=== PATIENT | female | born 1990 | race Two or more races ===

== ENCOUNTER 2025-01-29 16:28 | Outpatient (CLI) | payer MEDICAID, SELFPAY ==
[2025-01-29 17:00] VITALS: BP 111/72; PULSE 92; RESP 16; TEMP 36.6; O2SAT 99; BMI 29.7
[2025-01-29 18:02] LABS: ROM Kit Lot # 58102387; ROM Swab Mixed By: CL; Rupture of Fetal Membranes Negative (Negative); Swb Mxed in Solvent 1 min? Yes
[2025-01-29 18:26] LABS: FFN Specimen Descripton Clr Colrless Aqueous; Fetal Fibronectin Negative (Negative)
[2025-01-29 18:30] VITALS: BP 111/72; PULSE 92; RESP 16; TEMP 36.6
== END 2025-01-29 18:50 | disposition home or self-care (01) ==
LOC: S4S1 16:47 → S4SX 17:32
PROVIDERS: PCP Physician Assistant Medical; Referring Provider Specialist; Visit Provider Specialist
DX: Z34.83 Encounter for supervision of other normal pregnancy, third trimester (principal); Z36.89 Encounter for other specified antenatal screening; Z3A.31 31 weeks gestation of pregnancy
CPT/HCPCS: 59025; 82731; 84112

== ENCOUNTER 2025-03-14 15:38 | Outpatient (RCR) | payer MEDICAID, SELFPAY ==
[2025-03-06 08:33] VITALS: BP 110/66; PULSE 83; RESP 16; TEMP 36.8
--- NOTE | 2025-03-06 08:54 | XR_ITS ---
Examination: Biophysical profile, ultrasound, twin A Date and time of exam: March 06, 2025, 0924 hours INDICATIONS: Worsening pelvic contractions this week Technique: Multiple transabdominal sonographic images of the pelvis abdomen obtained. Attention is directed to the breathing movement, gross body movement, amniotic fluid volume and tone. Findings: Amniotic fluid index 7.7 cm Total biophysical profile is 8 of 8. breathing movement is 2. Gross body movement is 2. tone is 2. Qualitative amniotic fluid volume is 2 Impression: Biophysical profile is 8 of 8. Twin A Examination: Biophysical profile, ultrasound, twin B Date and time of exam: March 06, 2025 0934 hours INDICATIONS: Worsening pelvic contractions this week Technique: Multiple transabdominal sonographic images of the pelvis abdomen obtained. Attention is directed to the breathing movement, gross body movement, amniotic fluid volume and tone. Findings: Amniotic fluid index 7.7 cm Total biophysical profile is 8 of 8. breathing movement is 2. Gross body movement is 2. tone is 2. Qualitative amniotic fluid volume is 2 Impression: Biophysical profile is 8 of 8. Twin B
[2025-03-14 16:01] VITALS: BP 122/79; PULSE 76; RESP 16; TEMP 36.7
== END 2025-03-14 23:59 | disposition home or self-care (01) ==
LOC: S4S1 15:38
PROVIDERS: Referring Provider Specialist; Visit Provider Specialist
DX: O30.043 Twin pregnancy, dichorionic/diamniotic, third trimester (principal); Z3A.37 37 weeks gestation of pregnancy
CPT/HCPCS: 59025; 76819

== ENCOUNTER 2025-03-18 16:20 | Inpatient (IN) | payer MEDICAID, SELFPAY ==
--- NOTE | 2025-03-18 07:33 | PC.NURSE ---
pt on phone, asked regarding bed availability for IOL, informed pt of no bed available at this time, educated on kick count and labor precautions, informed pt of this RN calling if bed becomes available, pt verbalized understanding
[2025-03-18 16:31] VITALS: BMI 30.9
[2025-03-18 16:50] VITALS: BP 125/82; PULSE 82
--- NOTE | 2025-03-18 17:11 | XR_ITS ---
Examination: . There is limited TECHNIQUE: Limited transabdominal sonographic images pelvis INDICATIONS: Twin gestations, induction today, labor evaluation Date and time: March 18, 2025 1758 hours FINDINGS: Baby A: Cephalic presentation Cardiac motion 147 BPM Estimated weight 2834 g Baby B: Cephalic presentation Cardiac motion 1:30 BPM Estimated weight 2742 g IMPRESSION: Twin gestations as above
[2025-03-18 17:25] VITALS: BMI 30.9
[2025-03-18 17:34] VITALS: RESP 17; TEMP 37
--- NOTE | 2025-03-18 18:05 | ESHP_ITS ---
Documentation for date of: 03/18/25 OB Labor/Induct. HPI History of Present Illness Chief complaint: scheduled IOL : 7 Para: 6 Term pregnancies: 6 pregnancies: 0 Living children: 6 History of Abortions: Spontaneous and Elective: 0 History of Vaginal deliveries: 6 History of sections: No History of : No Date of last menstrual period: 06/25/25 SUDHA: 04/01/25 Gestational Age (weeks): 38 Gestational Age (days): 0 Gestational age based on last menstrual period: -14 Indication for induction: other History of present illness: Patient presents for scheduled induction of labor. Indication: di di twin gestation at 38w0d. Having some ctx, not painful. No LOF. No vaginal bleeding. Normal movement x2. History of Present Dating criteria: LMP confirmed by 1st trimester US Adequate Care: Yes Ultrasounds: other (Had normal anatomy scans and growth scans with MFM, at last MFM growth scan Twin B was 2 grams more than Twin A) Narrative: PNC with Dr. Sherri Monaco of uncomplicated x6 at term, proven to [id number] Current di-di twins. Twin A is male, Twin B is female. Taking ASA 81mg QD Labs Maternal Blood Type: A Pos Labs: Negative: RPR, Hepatitis B, Rubella Titre, HIV, Chlamydia, Gonorrhea and Group Beta Strep and Unknown: Herpes Type 1, Herpes Type 2 and Covid-19 Narrative: 1hr glucola 128 NIPT negative Review of Systems Review of Systems Narrative Review of Systems: Review of Systems Systems Reviewed: All systems reviewed, normal except as documented Constitutional Constitutional: Denies body ache(s), Denies chills, Denies fever(s) and Denies headache(s) ENT Ears, Nose, Mouth, and Throat: Denies headache(s) and Denies vertigo Cardiovascular Cardiovascular: Denies chest pain, Denies palpitations, Denies dyspnea and Denies syncope Respiratory Respiratory: Denies cough, Denies dyspnea Gastrointestinal Gastrointestinal: Denies nausea and Denies vomiting Neurologic Neurologic: Denies convulsions, Denies headache(s), Denies other visual disturbances, Denies syncope and Denies vertigo Past Medical History Family History OTHER FAMILY HX: non-contributory Surgical History SURGICAL: Negative Section Social History SOCIAL: No tobacco/ETOH/illicit drug use. , good support. Past Medical History Comments PMH COMMENT: Benign. Meds Home Medications and Allergies Home Medications ?Medication ?Instructions ?Recorded ?Confirmed ?Type prenat.vits,trung,alx-[id number] 1 tab PO DAILY 03/28/22 03/28/22 History Allergies Allergy/AdvReac Type Severity Reaction Status Date / Time No Known Allergies Allergy Unknown Verified 03/18/25 18:12 OB Exam Physical Exam Vital signs: Temp Pulse Resp BP 98.6 F 82 17 125/82 03/18/25 17:34 03/18/25 16:50 03/18/25 17:34 03/18/25 16:50 Narrative: General: well developed, well nourished, no acute distress, conversant Cardiac: normal heart rate Lungs: breathing without distress Abdomen: soft, gravid, non-tender, no rebound or guarding Extremities: trace edema BLE Detailed Labor and Delivery Exam Dilation (cm): 2-3 Effacement (%): 60 Cervix position: mid station: -2 Consistency: medium Presentation: Vertex (vertex x2 by ultrasound) Membranes: intact monitor accelerations: 15x15 (x2) monitor decelerations: None (x2) superintendent terminal variability: Moderate (11-25) (x2) Contraction frequency (min): ctx q4-5min OB Results Labs 03/18/25 17:00 Impressions Impression: Examination: . There is limited TECHNIQUE: Limited transabdominal sonographic images pelvis INDICATIONS: Twin gestations, induction today, labor evaluation Date and time: March 18, 2025 1758 hours FINDINGS: Baby A: Cephalic presentation Cardiac motion 147 BPM Estimated weight 2834 g Baby B: Cephalic presentation Cardiac motion 1:30 BPM Estimated weight 2742 g IMPRESSION: Twin gestations as above OB Assessment & Plan Assessment and Plan (1) Encounter for induction of labor: Status: Acute Assessment and plan: Dipti is a 34yo with di-di twin gestation at 38&0wk presenting for scheduled induction of labor. SCE: 2-3/60/-2, cephalic/cephalic confirmed by ultrasound. Twin A 2834g, Twin B 2742g. Vitals wnl, benign exam. Reassuring assessment x2. PMhx/ significant for: -PNC with Dr. Polanco -Di-di twin gestation. Patient counseled in office and after admission regarding delivery mode and desires vaginal delivery. She understands twin gestation has higher risk for section and operative delivery. -Grandmultiparity Plan: -Admit to L&D -Establish IV, routine labs, T&C 2u on hold -CEFM -Clear liquid diet -Lobster Man/consent re: iol, -GBS status: negative -Will initiate IOL with pitocin and titrate per protocol -Anticipate -Safe to proceed (2) Dichorionic diamniotic twin gestation: Status: Acute (3) Grand multipara in labor in third trimester: Status: Acute (2) Dichorionic diamniotic twin gestation Qualifiers: Trimester: third trimester Qualified Code(s): O30.043 - Twin , dichorionic/diamniotic, third trimester
[2025-03-18 18:18] LABS: Basophils # (Auto) 0.0 Thou/mm3 (0.0-0.2); Basophils % (Auto) 1 % (0-2.5); Eosinophils # (Auto) 0.0 Thou/mm3 (0.0-0.5); Eosinophils % (Auto) 0 % (0-10); Hematocrit 33.0 % (36.0-46.0); Hemoglobin 11.5 g/dL (12.0-16.0); Immature Granulocytes Auto 0.04 Thou/mm3 (0.00-0.00); Lymphocytes # (Auto) 1.4 Thou/mm3 (1.0-4.8); Lymphocytes % (Auto) 21 % (10-50); Mean Corpuscular HGB Conc 34.8 g/dl (31.0-37.0); Mean Corpuscular Hemoglobin 30.7 pg (25.0-35.0); Mean Corpuscular Volume 88 fL (80-100); Monocytes # (Auto) 0.5 Thou/mm3 (0.0-0.8); Monocytes % (Auto) 7 % (0-12); Neutrophils # (Auto) 4.7 Thou/mm3 (1.8-7.7); Neutrophils % (Auto) 71 % (37-80); Nucleated Red Blood Cell # 0.00 Thou/mm3 (0.00-0.00); Nucleated Red Blood Cell % 0 /100 WBC (0); Platelet Count 133 Thou/mm3 (140-440); RDW Standard Deviation 45.1 fL (36.4-46.3); Red Blood Count 3.74 Miln/mm3 (4.00-5.20); White Blood Count 6.6 Thou/mm3 (3.6-11.0)
[2025-03-18 18:52] VITALS: BP 127/76; PULSE 74
[2025-03-18 19:18] VITALS: TEMP 36.6
[2025-03-18] MEDS: RINGERS LACTATED 1000 ML 1,000 ML 100 ML IV (19:54)
[2025-03-18 21:05] LABS: Syphilis Nonreactive (Nonreactive)
[2025-03-19] VITALS (174 sets, daily range): BP systolic 99–147; BP diastolic 53–92; PULSE 52–105; RESP 16–20; TEMP 36.5–36.9; O2SAT 89–100
[2025-03-19] MEDS: OXYTOCIN in NS 30 units 30 UNIT/500 ML BAG IV (04:36)
[2025-03-19] MEDS: RINGERS LACTATED 1000 ML 1,000 ML 100 ML IV (06:31)
--- NOTE | 2025-03-19 10:32 | PD.LDPN ---
Documentation for date of: 03/19/25 OB Labor Progress Note Pelvic Exam Dilation (cm): 6 Effacement (%): 70 station: -2 Amniotic membrane status: Ruptured (clear) Contractions Monitor mode: External Contraction frequency: 2-5.5 Contraction pattern: Coupling Contraction intensity: Mild Status status: Category ll Assessment and Plan Comments: Intrapartum Note Patient comfortable with epidural. Nauseous, transitioning. IV pitocin at 3mu. Vitals wnl, afebrile Twin A Cat I FHRT Twin B Cat I-II FHRT SCE: 670/-2, AROM performed with clear fluid noted. Well tolerated. Bladder santamaria bulb was below twin A's head, so this was pushed up without issue. Plan to continue to titrate pitocin per protocol Will move to OR with double set up once complete Patient reminded that there is risk for section if twin B does not tolerate descent after twin A delivers. She is accepting of if indicated. Will continue to closely monitor CEFM Safe to proceed Jocelyne Zendejas MD
[2025-03-19] MEDS: OXYTOCIN in NS 20 units 20 UNIT/1,000 ML BAG 125 UNIT IV (12:59)
[2025-03-19] MEDS: METHYLERGONOVINE INJ 0.2 MG/ML VIAL IM (13:02)
[2025-03-19] MEDS: IBUPROFEN TAB 400 MG TABLET 800 MG PO (13:52)
--- NOTE | 2025-03-19 14:37 | OBDSUM_ITS ---
Data (Multiple) Data Hx Section: No : 7 Term: 6 : 0 Livin Abortions: Spontaneous & Theraputic: 0 Delivery Data A Labor Data Initiation of labor: Induction Induction/Augmentation Agent: Pitocin ROM date: 03/19/25 ROM time: 10:26 Amniotic membrane rupture type: Artificial Amniotic fluid description: Clear Delivery Data Onset of labor date: 03/19/25 Onset of labor time: 07:47 Complete dilation date: 03/19/25 Complete dilation time: 12:40 [place] delivery date: 03/19/25 [place] delivery time: 12:45 Placenta delivery date: 03/19/25 Placenta delivery time: 13:04 Support person(s) at delivery: FOB Delivery Method Delivery method: Normal Vaginal Delivery Presentation: Vertex Anesthesia Type Anesthesia Type: Epidural Placenta Placenta delivery description: Spontaneous Cord blood sent to lab: Yes cord blood collection: Cord Blood Type EBL Estimated blood loss (ml): 450 Umbilical Cord cord description: 3 Vessels Additional Procedures Dipti is a 34yo [id number] s/p uncomplicated of di-di twins at 38&1wk after undergoing IOL, delivering twin A at 1245 and twin B at 1256 on 03/19/2025. On presentation, SCE was 2-3cm. She progressed with pitocin augmentation and AROM to C/C/0 at which point she was taken to the OR with double set up for delivery. She did receive an epidural. With just a few pushes, twin A's head delivered OA and restituted RAJAT. Right anterior shoulder delivered easily followed by posterior shoulder and corpus. had spontaneous cry and was vigorous. Apgars 9/9. Infant placed on maternal abdomen where nose/mouth were suctioned and dried/stimulated. After approximately 1 minute, cord was clamped x2 and cut by FOB. Twin A was taken to the warmer. At that point, I palpated that twin B was still cephalic. FHRT remained reassuring. Within the span of a couple contractions, twin B's head was low enough to safely perform AROM, clear fluid noted. With just another couple contractions, twin B's head was low enough that patient felt urge to push and she pushed just a couple times until twin B's head delivered OA and restituted REFUGIO. Left anterior shoulder delivered easily followed by posterior shoulder and cor pus. Infant had spontaneous cry and was vigorous. Apgars 9/9. Infant placed on maternal abdomen where nose/mouth were suctioned and dried/stimulated. After approximately 1 minute, cord was clamped x2 and cut by FOB. Twin B was taken to the warmer. Cord blood collected from each cord for typing. With fundal massage and cord traction, placentas delivered spontaneously and intact. Bimanual massage performed and IV pitocin given per protocol with fundus then firm at u-2cm and hemostasis noted. Methergine 0.2mg IM given for prophylaxis. Inspection of perineum and vagina revealed a very small 1st degree midline perineal laceration which was repaired in routine fashion with 4-0 vicryl- total reapproximation and hemostasis achieved. Cytotec 800mcg MT placed for prophylaxis. All counts correct x2. Mom and infants were doing well when I left the OR Jocelyne Zendejas MD Complications Complications: none Data A [place] Data order: 1
--- NOTE | 2025-03-19 14:47 | PD.LDDELB1 ---
Data (Multiple) Data Hx Section: No : 7 Term: 6 : 0 Livin Abortions: Spontaneous & Theraputic: 0 Delivery Data B Labor Data Initiation of labor: Induction Induction/Augmentation Agent: Pitocin ROM date: 03/19/25 ROM time: 12:50 Amniotic membrane rupture type: Artificial Amniotic fluid description: Clear Delivery Data Onset of labor date: 03/19/25 Onset of labor time: 07:47 Complete dilation date: 03/19/25 Complete dilation time: 12:40 [place] delivery date: 03/19/25 [place] delivery time: 12:56 Placenta delivery date: 03/19/25 Placenta delivery time: 13:04 Stage 1 total time (B): Labor - Stage 1 Duration 4 hours and 53 minutes Stage 2 total time (B): Labor - Stage 2 Duration 16 minutes Stage 3 total time (B): Labor - Stage 3 Duration 8 minutes Delivered by: Cristiana Delivery nurse: Dang nurse: Dale Respiratory therapist(s) at delivery: Yes [employer] at delivery: Yes (Brianna) Support person(s) at delivery: FOB Delivery Method Delivery method: Normal Vaginal Delivery Presentation: Vertex Anesthesia Type Anesthesia Type: Epidural Placenta Placental delivery description: Spontaneous Placenta Disposition: Sent to Pathology Cord blood sent to lab: Yes cord blood collection: Cord Blood Type EBL Estimated blood loss (ml): 450 Umbilical Cord cord description: 3 Vessels Additional Procedures Dipti is a 34yo [id number] s/p uncomplicated of di-di twins at 38&1wk after undergoing IOL, delivering twin A at 1245 and twin B at 1256 on 03/19/2025. On presentation, SCE was 2-3cm. She progressed with pitocin augmentation and AROM to C/C/0 at which point she was taken to the OR with double set up for delivery. She did receive an epidural. With just a few pushes, twin A's head delivered OA and restituted RAJAT. Right anterior shoulder delivered easily followed by posterior shoulder and corpus. had spontaneous cry and was vigorous. Apgars 9/9. placed on maternal abdomen where nose/mouth were suctioned and infant dried/stimulated. After approximately 1 minute, cord was clamped x2 and cut by FOB. Twin A was taken to the warmer. At that point, I palpated that twin B was still cephalic. FHRT remained reassuring. Within the span of a couple contractions, twin B's head was low enough to safely perform AROM, clear fluid noted. With just another couple contractions, twin B's head was low enough that patient felt urge to push and she pushed just a couple times until twin B's head delivered OA and restituted REFUGIO. Left anterior shoulder delivered easily followed by posterior shoulder and corpus. had spontaneous cry and was vigorous. Apgars 9/9. Infant placed on maternal abdomen where nose/mouth were suctioned and infant dried/stimulated. After approximately 1 minute, cord was clamped x2 and cut by FOB. Twin B was taken to the warmer. Cord blood collected from each cord for typing. With fundal massage and cord traction, placentas delivered spontaneously and intact. Bimanual massage performed and IV pitocin given per protocol with fundus then firm at u-2cm and hemostasis noted. Methergine 0.2mg IM given for prophylaxis. Inspection of perineum and vagina revealed a very small 1st degree midline perineal laceration which was repaired in routine fashion with 4-0 vicryl- total reapproximation and hemostasis achieved. Cytotec 800mcg NE placed for prophylaxis. All counts correct x2. Mom and infants were doing well when I left the OR Jocelyne Zendejas MD Complications Complications: none [place] Data B [place] Data order: 2
[2025-03-19] MEDS: ONDANSETRON INJ 2 MG/ML INJ 2 ML 4 MG IVP (15:05)
[2025-03-19] MEDS: ACETAMINOPHEN 325 MG TABLET 650 MG PO (20:01)
[2025-03-19] MEDS: DOCUSATE SOD 100 MG CAPSULE PO (20:01)
[2025-03-20] VITALS: BP 116/71; PULSE 61; RESP 16; TEMP 36.6; O2SAT 95
[2025-03-20 04:32] VITALS: BP 118/82; PULSE 62; RESP 16; TEMP 36.6; O2SAT 96
[2025-03-20] MEDS: IBUPROFEN TAB 400 MG TABLET 800 MG PO (04:37)
[2025-03-20 06:44] LABS: Basophils # (Auto) 0.0 Thou/mm3 (0.0-0.2); Basophils % (Auto) 0 % (0-2.5); Eosinophils # (Auto) 0.1 Thou/mm3 (0.0-0.5); Eosinophils % (Auto) 1 % (0-10); Hematocrit 33.4 % (36.0-46.0); Hemoglobin 11.5 g/dL (12.0-16.0); Immature Granulocytes Auto 0.03 Thou/mm3 (0.00-0.00); Lymphocytes # (Auto) 1.9 Thou/mm3 (1.0-4.8); Lymphocytes % (Auto) 19 % (10-50); Mean Corpuscular HGB Conc 34.4 g/dl (31.0-37.0); Mean Corpuscular Hemoglobin 30.6 pg (25.0-35.0); Mean Corpuscular Volume 89 fL (80-100); Monocytes # (Auto) 0.7 Thou/mm3 (0.0-0.8); Monocytes % (Auto) 7 % (0-12); Neutrophils # (Auto) 7.3 Thou/mm3 (1.8-7.7); Neutrophils % (Auto) 73 % (37-80); Nucleated Red Blood Cell # 0.00 Thou/mm3 (0.00-0.00); Nucleated Red Blood Cell % 0 /100 WBC (0); Platelet Count 109 Thou/mm3 (140-440); RDW Standard Deviation 45.1 fL (36.4-46.3); Red Blood Count 3.76 Miln/mm3 (4.00-5.20); White Blood Count 10.0 Thou/mm3 (3.6-11.0)
--- NOTE | 2025-03-20 08:08 | ESDS_ITS ---
DS: Providers Provider Date of admission: 03/18/25 16:20 Primary care physician: Evelyn Ceballos PA-C Admitting Provider: Jocelyne Zendejas MD Attending Provider on Admission: Jocelyne Zendejas MD Consults: 03/19/25 13:28 Referral Routine Comment: Attending Provider on DC: Jocelyne Zednejas MD Discharging Provider: Jocelyne Zendejas MD DS: Diagnosis Discharge Diagnosis (1) care following vaginal delivery: Status: Acute (2) Encounter for induction of labor: Status: Acute (3) Dichorionic diamniotic twin gestation: Status: Acute (4) Grand multipara in labor in third trimester: Status: Acute Problem List Completed Was Problem List Reviewed/Reconciled?: Yes Summary/Hosp Course Brief History: Dipti presents for scheduled induction of labor. Indication: di di twin gestation at 38w0d. Having some ctx, not painful. No LOF. No vaginal bleeding. Normal movement x2. She is now s/p uncomplicated of di-di twins, doing well on PPD1 . She has had an uncomplicated course, meeting all milestones and feels ready for discharge home. She is ambulating without lightheadedness, tolerating regular diet no n/v, spontaneously voiding without issue. She has no chest pain or shortness of breath. No fevers or chills. Minimal, appropriate discomfort. Vitals normal, benign exam. Hemodynamically stable with no evidence of infection. PP Hgb 11.5 from 11.5. Peripartum Data Delivery Method: Normal Vaginal Delivery Status at Discharge Functional status at discharge: independent ambulation Overall status at discharge: patient is back to baseline Time Spent with Patient Time attestation: Total time spent providing and/or coordinating discharge services: Exam Vital Signs Temp Pulse Resp BP Pulse Ox O2 Del Method 97.8 F 62 16 118/82 96 Room Air 03/20/25 04:32 03/20/25 04:32 03/20/25 04:32 03/20/25 04:32 03/20/25 04:32 03/20/25 04:32 Narrative Exam General: well developed, well nourished, no acute distress, conversant Cardiac: normal heart rate Lungs: breathing without distress Abdomen: soft, post-gravid, non-tender, no rebound or guarding, Fundus firm at u-3cm. Extremities: no pain with palpation of calves, trace edema of BLE Discharge Plan Plan Patient Disposition: HOME (Self Care) Patient condition on transfer: Stable Prescriptions/Referrals Prescriptions/Med Rec: New docusate sodium 100 mg Capsule 100 mg PO BID 10 Days Qty: 20 0RF ibuprofen 800 mg tablet 800 mg PO Q8H PRN (Reason: See Comments) 10 Days Qty: 20 0RF No Action prenat.vits,trung,[id number] Tablet 1 tab PO DAILY Referrals: Evelyn Ceballos PA-C [Primary Care Provider] - Patient/Caregiver Discharge Instructions Discharge Activity: activity as tolerated and other Other Discharge Activity Instructions:: vaginal rest and no heavy lifting more than 10 pounds for 6 weeks Other Discharge Diet Instructions: regular diet Education Materials: After a Vaginal Print Language: Mauritian Activity Restrictions/Additional Instructions: Follow up with Dr. Polanco in 4 weeks for visit Stand Alone Forms: Stephanie Award Info., Patient Portal Info Letter Discharge Order Discharge Orders: Discharge (Routine); Ordered 03/20/25 Ordered By: Jocelyne Zendejas Planned Discharge Date 03/20/25 (3) Dichorionic diamniotic twin gestation Qualifiers: Trimester: third trimester Qualified Code(s): O30.043 - Twin , dichorionic/diamniotic, third trimester
[2025-03-20] MEDS: DOCUSATE SOD 100 MG CAPSULE PO (08:45)
[2025-03-20 08:50] VITALS: BP 120/79; PULSE 66; RESP 15; TEMP 36.9; O2SAT 97
--- NOTE | 2025-03-21 08:20 | CHAP ---
Patient was visited by a Spiritual Care Volunteer on 03/20/2025 between 0900 and 1200 and received comfort, encouragement and/or prayer. Patient and infants also were given a Baby Thomson.
== END 2025-03-20 14:35 | disposition home or self-care (01) | DRG 560 ==
LOC: S4SX 03-19 13:26 → S4NX 03-19 16:17
PROVIDERS: Admitting Provider Obstetrics & Gynecology; PCP Physician Assistant Medical; Visit Provider Obstetrics & Gynecology
DX: O30.043 Twin pregnancy, dichorionic/diamniotic, third trimester (principal); Z37.2 Twins, both liveborn; Z3A.38 38 weeks gestation of pregnancy; O70.0 First degree perineal laceration during delivery
CPT/HCPCS: 36415; 59409; 76815; 85025; 86780; 86850; 86900; 86901; 86923; 94762; J2210; J2405; J2590; J2795; J3010; J7120; S0191; A9270